=== PATIENT | female | born 1990 | race Caucasian/White ===

== ENCOUNTER 2018-11-07 18:45 | Emergency (ER) | payer MEDICAID ==
[~2018-11-07] VITALS: Ht 162.6 cm; Wt 68.0 kg
[2018-11-07 18:54] VITALS: BP_SYST 140
[2018-11-07] MEDS ORDERED: DIPH-TET-PERTUS Vaccine 0.5 ML VIAL (ADACEL) I.M. ONE (20:00)
[2018-11-07] MEDS ORDERED: LIDOCAINE/EPI 1% 1:100000 20 ML VIAL INJ ONE (20:15)
[2018-11-07] MEDS ORDERED: GENTAMICIN SULFATE 0.3% OPHT. 5 ML DROPS OP ONE (20:15)
[2018-11-07] MEDS ORDERED: MORPHINE 4 MG/ML INJ. SYRINGE IVP ONE ×2 (20:45→23:00)
[2018-11-07] MEDS ORDERED: LORazepam 2 MG/ML VIAL IVP ONE (20:45)
[2018-11-07] MEDS ORDERED: LORazepam 2 MG/ML VIAL (FOR ER USE) ONE (20:54)
[2018-11-07] MEDS ORDERED: CLINDAMYCIN 300 MG/50 ML D5W 50 ML IV ONE (22:30)
[2018-11-07] MEDS ORDERED: BACITRACIN 1 GM OINT TP ONE (22:45)
[2018-11-07] MEDS ORDERED: CLINDAMYCIN 600 mg/50mL D5W 50 ML IV ONE (23:14)
[2018-11-07] MEDS ORDERED: CLINDAMYCIN 600 MG in D5W 50 ML IV ONE (23:15)
[2018-11-08] MEDS ORDERED: fentaNYL CITRATE/PF 100 MCG/2 ML AMP IVP ONE
[2018-11-08 01:04] VITALS: BP_SYST 132
== END 2018-11-08 01:04 | disposition home or self-care (01) ==
LOC: SED 18:45
DX: S81.811A Laceration without foreign body, right lower leg, initial encounter (principal); S01.112A Laceration without foreign body of left eyelid and periocular area, initial encounter; Z88.0 Allergy status to penicillin; W54.0XXA Bitten by dog, initial encounter; Y93.89 Activity, other specified; Y92.89 Other specified places as the place of occurrence of the external cause; Y99.8 Other external cause status
CPT/HCPCS: 12004; 36415; 70150; 73590; 87040; 90471; 90715; 96365; 96375; 96376; 99284; J1956; J2060; J2270; J3010; J3490; 99283